=== PATIENT | male | born 1950 | race Caucasian/White ===

== ENCOUNTER 2017-11-26 19:36 | Emergency (ER) | payer MEDICARE ==
[~2017-11-26] VITALS: Ht 170.2 cm; Wt 111.8 kg
[2017-11-26 20:05] VITALS: Ht 170.2 cm; Wt 111.8 kg
[2017-11-26] MEDS ORDERED: DESERYL100 MG PO (20:07)
[2017-11-26] MEDS ORDERED: NORVASC5 MG PO (20:08)
[2017-11-26] MEDS ORDERED: NEURONTIN600 MG PO (20:08)
[2017-11-26] MEDS ORDERED: ELIQUIS5 MG PO (20:08)
[2017-11-26] MEDS ORDERED: ISOSORBIDE DINI30 MG PO (20:09)
[2017-11-26] MEDS ORDERED: ZOLOFT100 MG PO ×2 (20:10)
[2017-11-26] MEDS ORDERED: CYCLOBENZAPRINE10 MG PO (20:10)
[2017-11-26] MEDS ORDERED: XANAX2 MG PO (20:11)
[2017-11-26] MEDS ORDERED: K-DUR20 MEQ PO (20:12)
[2017-11-26] MEDS ORDERED: GLUCOTROL 5 MG T5 MG PO (20:12)
[2017-11-26] MEDS ORDERED: GLUCOTROL ER2.5 MG (20:12)
[2017-11-26 22:48] VITALS: BP 178/98
== END 2017-11-26 22:48 | disposition home or self-care (01) ==
LOC: D.ER 19:36
DX: S20.211A Contusion of right front wall of thorax, initial encounter (principal); S40.021A Contusion of right upper arm, initial encounter; W18.30XA Fall on same level, unspecified, initial encounter; Y93.89 Activity, other specified; Y92.019 Unspecified place in single-family (private) house as the place of occurrence of the external cause; E11.9 Type 2 diabetes mellitus without complications; Z95.0 Presence of cardiac pacemaker; I48.91 Unspecified atrial fibrillation; K21.9 Gastro-esophageal reflux disease without esophagitis; Z85.828 Personal history of other malignant neoplasm of skin

== ENCOUNTER 2017-12-21 12:44 | Emergency (ER) | payer MEDICARE ==
[~2017-12-21] VITALS: Ht 170.2 cm; Wt 106.4 kg
[~2017-12-21 12:44] MED LIST: CYCLOBENZAPRINE10 MG PO; DESERYL100 MG PO; ELIQUIS5 MG PO; GLUCOTROL 5 MG T5 MG PO; GLUCOTROL ER2.5 MG; ISOSORBIDE DINI30 MG PO; K-DUR20 MEQ PO; NEURONTIN600 MG PO; NORVASC5 MG PO; XANAX2 MG PO; ZOLOFT100 MG PO
[2017-12-21 13:07] VITALS: Ht 170.2 cm; Wt 106.4 kg
[2017-12-21] MEDS ORDERED: NORCO 5/325 TAB1 TAB PO (14:49)
[2017-12-21 15:20] VITALS: BP 132/56
== END 2017-12-21 15:20 | disposition home or self-care (01) ==
LOC: D.ER 12:44
DX: S42.211A Unspecified displaced fracture of surgical neck of right humerus, initial encounter for closed fracture (principal); W18.09XA Striking against other object with subsequent fall, initial encounter; Y93.89 Activity, other specified; Y92.89 Other specified places as the place of occurrence of the external cause; E11.9 Type 2 diabetes mellitus without complications; I10 Essential (primary) hypertension; J44.9 Chronic obstructive pulmonary disease, unspecified; Z85.820 Personal history of malignant melanoma of skin